=== PATIENT | female | born 1950 | race Caucasian/White ===

== ENCOUNTER 2021-02-24 18:44 | Inpatient (IN) | payer OTHER ==
[~2021-02-24] VITALS: Ht 142.2 cm; Wt 32.5 kg
[2021-02-24 19:00] VITALS: BP 161/68
[2021-02-24 19:59] LABS: LYMPHOCYTES 7.8 % (24.0-44.0)
[2021-02-24 20:07] LABS: CALCIUM 8.9 mg/dL (8.5-10.1); CREATININE 0.8 mg/dL (0.6-1.0); POTASSIUM 4.1 mmol/L (3.5-5.1)
[2021-02-24 20:13] LABS: TOTAL BILIRUBIN 0.6 mg/dL (0.2-1.0)
[2021-02-24 20:18] LABS: ABSOLUTE NEUTROPHILS 10.6 thou/uL (1.4-8.2); BASOPHILS 0.7 % (0.0-2.0); EOSINOPHILS 0.9 % (0.0-3.0); HEMATOCRIT 39.9 % (37.0-47.0); HEMOGLOBIN 13.6 gm/dL (12.0-15.0); MCH 34.8 pg (26.0-34.0); MCHC 34.1 g/dL (28.0-37.0); MCV 102.3 fL (80.0-100.0); MONOCYTES 4.4 % (1.0-8.0); PLATELET COUNT 288 thou/uL (150-400); POLYS 86.2 % (36.0-66.0); RDW 13.5 % (10.5-14.5); WBC 12.3 thou/uL (4.0-11.0)
[2021-02-24] MEDS ORDERED: ENDOCET 10-3251 EACH PO (20:47)
[2021-02-24 20:48] LABS: URINE BILIRUBIN NEGATIVE (Negative); URINE BLOOD NEGATIVE (Negative); URINE CLARITY CLEAR; URINE COLOR YELLOW; URINE GLUCOSE-RANDOM* NEGATIVE (Negative); URINE KETONES NEGATIVE (Negative); URINE LEUKOCYTES-REFLEX TRACE (Negative); URINE NITRITE-REFLEX NEGATIVE (Negative); URINE PROTEIN (DIPSTICK) 1+ (Negative); URINE SPECIFIC GRAVITY 1.025 (1.005-1.035); URINE UROBILINOGEN 0.2 E.U./dl (0.2-1.0)
[2021-02-24 20:51] LABS: BACTERIA-REFLEX None Seen /HPF (None Seen); CASTS None Seen /LPF (None Seen); CRYSTALS None Seen /LPF (None Seen); SQUAMOUS 0-3 Few /LPF (0-3); URINE RBC None Seen /HPF (0-2); URINE WBC-REFLEX 0-5 Rare /HPF (0-5)
[2021-02-24] MEDS ORDERED: ALPRAZOLAM1 MG PO (20:55)
[2021-02-24] MEDS ORDERED: TRANDATE 200 M200 M1 PO (20:55)
[2021-02-24 21:31] VITALS: BP 153/70
[2021-02-24 21:45] VITALS: BP 158/66
[2021-02-24 22:45] VITALS: BP 149/82
[2021-02-24 23:53] VITALS: BP 149/82
[2021-02-25 03:28] VITALS: BP 129/74
--- NOTE | 2021-02-25 07:20 | NUR ---
PT ADMITTED TO UNIT APPROX 2215, ORIENTED TO UNIT AND ROOM, CONSENTS OBTAINED, ADMISSION PACKET PROVIDED. PT AOX4. PT REPORTS 7-10/10 PAIN IN LEFT HIP. PT RECEIVING SCHEDULED IV MORPHINE Q6HR. PT DENIES SOB WHILE ON ROOM AIR. PT TOLERATING PO INTAKE OF FLUIDS AND REGULAR DIET WITHOUT ISSUE, NPO AT MIDNIGHT. PT WITHOUT NAUSEA OR EMESIS. PT RESTING IN BED THROUGHOUT SHIFT, FREQUENT REPOSITIONING ENCOURAGED, PT REFUSING TO REPOSITIONING ASSISTANCE DUE TO POSSIBLE PAIN AND CURRENT COMFORT. PT REPORTS HAVING SORENESS TO SACRUM, UNABLE TO VISUALIZE IN POSITION- PT DENIES OPENINGS IN SKIN. PT REPORTS TINGLING IN LLE. CAPILLARY REFILL LESS THAN 3SEC IN ALL EXTREMITIES. PT NOTED TO HAVE INCREASED ANXIETY REGARDING TAKING HOME MEDICATIONS, REQUESTING BP MEDICATION AND NICOTINE PATCH. ONCALL MANAGER BALANCE NOTIFIED, RECEIVED ORDERS FOR ONETIME 0.5MG IV ATIVAN, 7MG TRANSDERMAL NICOTINE PATCH DAILY, AND TO RESUME LABETOLOL HOME DOSE AND REGIMEN. PT ENCOURAGED TO NOTIFY STAFF FOR ALL NEEDS, CALL LIGHT WITHIN REACH, BED ALARM ON, BED LOCKED IN LOWEST POSITION, FREQUENT MONITORING WILL CONTINUE.
--- NOTE | 2021-02-25 09:08 | NUR ---
INITIAL ASSESSMENT: PT LIVES IN HOME WITH GRANDSON. PT STATED HER FOUR CHILDREN AND 5 GRANDCHILDREN "DROP IN ALL THE TIME." PT DRIVES VEHICLE, ACTIVE AND INDEPENDENT W/ADLS. PT FELL TRYING TO OPEN SLIDING DOORS. PT HAS 5 STEPS TO ENTRYWAY. PT DOES NOT HAVE TO NAVIGATE STAIRS ONCE INSIDE. GRANDSON DOES LAUNDRY THAT IS IN THE BASEMENT. PT HAS 0 DMES, AND DENIES HX WITH SNF/HH. CM TO CONT TO FOLLOW.
--- NOTE | 2021-02-25 11:03 | NUR ---
WOUND CONSULT; NO WOUNDS IDENTIFIED. THE PATIENT IS 73LBS. STATED SHE'S HAS ALWAYS BEEN THIS SIZE. NO WOUNDS IDENTIFIED. THE PATIENT IS HERE RE; A LEFT HIP FRACTURE. THE AREA IS BRUISED. NO WOUNDS IDENTIFIED. RECOMMENDATIONS; 1-LOW AIRLOSS BED PUMP 2-Q2H TUNING 3-BARRIER CREAM TO ALL BONY PROMINENCES. DISCUSSED WITH MAYTE
[2021-02-25 16:16] LABS: HEMATOCRIT 37.1 % (37.0-47.0); MCH 33.3 pg (26.0-34.0); MCHC 32.4 g/dL (28.0-37.0); MCV 102.7 fL (80.0-100.0); RBC 3.62 mil/uL (4.20-5.00); WBC 15.2 thou/uL (4.0-11.0)
[2021-02-25 16:40] VITALS: BP 122/70
--- NOTE | 2021-02-25 18:30 | NUR ---
PT ASSESSED AT START OF SHIFT. LT HIP BRUISING NOTED. PT VERY PAINFUL PRIOR TO SURGERY. CALLED FOR INCREASE IN PAIN MED WHICH HELPED SOME. PT WENT TO OR AT 1030 AND RETURNED TO ROOM AT 1420 ALERT AND IN NO PAIN. PT HAS CHRONIC BACK PAIN AND HAS TAKEN PERCOCET 10/325 FOR YEARS AND REQUESTED TO HAVE IT HERE. CALLED TO OBTAIN MED ORDER. LT HIP DSNG DRY W/ ICE PACK IN PLACE. TEDS/SCDS IN PLACE. TAKING LIQUIDS W/O NAUSEA AND WILL ADVANCE DIET. DTR TALKED W/ DR. PATRICK TO ADDRESS HER QUESTIONS.
[2021-02-25 19:48] VITALS: BP 100/65
--- NOTE | 2021-02-26 03:57 | NUR ---
ASSESSMENT COMPLETED. PT S/P LEFT TKR.CALEB DRSG CLEAN AND INTACT. SCDS AND TEDS IN PLACE. ICE ANABEL PROVIDED. PT ON A CJ MATTRESS, MOSTLY LYING ON RIGHT SIDE, DECLINING ANY OTHER OFFERS TO REPOSITION. BRUISING TO HIP AREA, NO EDEMA TO BLE-GOOD CSM NOTED TO LEFT FOOT. PT GETTING OXYCODONE PRN WITH RELIEF. SOME ELEMENT OF ANXIETY AND SADNESS-USING PRN XANAX.PT IS A PLEASANT LADY AND DOES NOT APPEAR TO BE IN ANY DISTRESS.
[2021-02-26 04:29] VITALS: BP 98/60
[2021-02-26 04:58] LABS: HEMATOCRIT 35.3 % (37.0-47.0); HEMOGLOBIN 11.9 gm/dL (12.0-15.0); MCH 34.6 pg (26.0-34.0); MCHC 33.8 g/dL (28.0-37.0); MCV 102.2 fL (80.0-100.0); RBC 3.45 mil/uL (4.20-5.00); RDW 12.8 % (10.5-14.5); WBC 10.2 thou/uL (4.0-11.0)
[2021-02-26 07:20] VITALS: BP 108/61
--- NOTE | 2021-02-26 08:22 | O ---
[facility] [place] [address] OPERATIVE REPORT Name: TANA MEJIA Room #: 440-P ADM IN M.R.#: [id number] Admission: 02/24/21 Attend Phys: Zay Fernando, Discharge: Date of : 54 Report #: [id number] THIS REPORT FOR: cc: Cathie Garcia MD, Stephanie M. MD Clymer, David J. MD ~ DATE OF SERVICE: 02/25/2021 PREOPERATIVE DIAGNOSIS: Left proximal femur fracture. POSTOPERATIVE DIAGNOSIS: Left proximal femur fracture. PROCEDURE: Left proximal femoral hemiarthroplasty. SURGEON: Adama Hubbard MD INDICATIONS: This very small very frail 70-year-old female has a number of chronic medical problems. She fell at home injuring the left hip. X-rays reveal a comminuted moderately complex basicervical fracture. This extends out into the greater trochanter and also to or slightly below the lesser trochanter. I have discussed with the patient treatment options including possible antegrade intramedullary nail fixation or hemiarthroplasty. I note that she is quite small and quite frail and the bone seems to be significantly osteopenic. Given this, I felt an open hemiarthroplasty with cemented components would probably be the best and most versatile option. She agreed and elected to proceed. DESCRIPTION OF PROCEDURE: The patient was taken to the operating room where she was placed under general anesthesia. Prophylactic intravenous antibiotics were administered. She was turned to the right lateral decubitus position. The left hip, thigh and leg were meticulously prepped and draped. A slightly curving posterolateral skin incision was made. This was carried through fascia exposing the posterior aspect of the hip joint, the capsule and short external rotators were taken down and preserved. The fracture was found to be moderately comminuted in the low neck region with some extension down into the calcar and lesser trochanter as well as some nondisplaced comminution extending out into the greater trochanter region. The fracture was very carefully debrided and the femoral head and neck were removed. A satisfactory calcar was prepared. The intramedullary canal was opened and very carefully reamed. A size 10 cement stem seemed to fit most appropriately. A trial reduction was performed and the hip seemed best suited for a +0 neck length with a cemented size 10 stem. The trial components were removed. The canal was once again thoroughly irrigated. Satisfactory alignment of the other comminuted fracture fragments was maintained. A cement restrictor was placed. Methyl methacrylate cement was mixed and injected into the canal. The [employer]hew hip system was [address] [address] OPERATIVE REPORT Name: TANA MEJIA SAUL Room #: 440-P [facility] IN M.R.#: [id number] Admission: 02/24/21 Attend Phys: Zay Fernando, Discharge: Date of : 54 Report #: [id number]. The size 10 Synergy cemented stem was selected. This was very gently advanced into the canal, positioning this in slight anteversion where it seemed to be most stable. Gentle pressure was held as the cement hardened. Excess cement was removed around its margin. A 41 mm trial head was placed matching her femoral head. The hip was reduced. Alignment, range of motion and stability seemed to be acceptable. A +0 neck length resulted in satisfactory leg length and good stability. The trial component was removed and the permanent 41 mm diameter unipolar head was selected with a +0 neck length sleeve. These were impacted on the Holder taper stem. The hip was reduced and once again alignment, range of motion and stability were assessed and felt to be satisfactory. The wound was copiously irrigated. Good hemostasis was established. The capsule and short external rotators were repaired back to bone using #1 Tevdek sutures, passed through drill holes in the greater trochanter. The fascia was closed with multiple #1 Vicryl sutures. The subcutaneous tissues were closed with 0 Monocryl. The skin was closed with skin juan carlos. A sterile dressing was applied. The patient was awakened and returned to recovery room in good condition. <ELECTRONICALLY SIGNED> By: Adama Hubbard MD 02/26/21 0822 [id number] Adama Hubbard MD /nt
--- NOTE | 2021-02-26 09:57 | NUR ---
Rec obtain vitamin D and B12 levels. Rec start MVI
--- NOTE | 2021-02-26 11:01 | NUR ---
Assumed care of pt at 0700. Pt a&ox4. Pain controlle with prn pain meds. Pt worked with physical and occupational therapy today. Mckeon catheter in place. To be removed tomorrow 02/27. Kehinde hose and SCDs in place. Dressing c/d/i. On 2L O2 due to pt desating to 83% on room air this am. Call light within reach. Fall precautions in place. Will continue to monitor.
[2021-02-26 16:31] VITALS: BP 116/77
--- NOTE | 2021-02-26 16:37 | NUR ---
ON-GOING ASSESSMENT: CM REVIEWED CHART AND SPOKE WITH PT WELL HER DAUGHTER. DAUGHTER REPORTS SHE DOES NOT WANT PATIENT RETURNING HOME WHERE SHE LIVES WITH GRANDSON SHE IS WORRIED SHE WILL FALL AND WILL NOT BE MOTIVATED. CM DISCUSSED OPTIONS WITH PATIENT FOR POST ACUTE CARE. THEY ARE INTERESTED IN [facility]. CM NOTIFIED THEM INSURANCE WOULD HAVE TO APPROVE AUTH. CM SPOKE WITH ATTENDING AND CONSULT WAS PLACED FOR [facility] WHO REPORTS THEY FEEL PT WOULD BE A GOOD CANIDATE. CM ALSO PROVIDED PT AND DAUGHTER WITH SNF LIST BACKUP. THEY ARE POSSIBLE INTERESTED IN [facility] IF [facility] IS NOT APPROVED. DAUGHTER IS CONCERNED PATIENT RECEIVED HER FIRST DOSE OF PFIZER VACCINE ON 02/05 AT [facility] [phone] AND WAS SCHEDULED FOR HER SECOND DOSE TODAY BUT REPORTS THAT THEY HAD TO CANCEL THE APPT SINCE SHE IS STILL HERE AND IS NOT GUARENTEED ANOTHER DOSE OR APPT NOW. THEY STATE THEY WERE TOLD PT COULD POSSIBLY GET IT HERE. CM REACHED OUT TO CM DIRECTOR WHO IS CHECKING WITH ADMINISTRATION ABOUT ANY POSSIBILITY OF PT BEING ABLE TO GET HER SECOND VACCINE HERE. CM WILL CONTINUE TO FOLLOW TO ASSIST NEEDED.
[2021-02-26 19:08] VITALS: BP 125/75
--- NOTE | 2021-02-26 21:37 | NUR ---
ASSESSMENT COMPLETED. PT IS ALERT AND ORIENTED. A LITTLE TEARFUL, SCHEDULED XANAX GIVEN. PT OBSERVED WATCHING TV. NO SIGNS OF DISTRESS. BREATHING OKAY ON JUST /NC.CALEB DRSG ON LEFT HIP IS C/D/I, SCDS IN PLACE.PT REPOSITIONED WITH PILLOW TO OFFLOAD COCCYX/SACCRUM, REMAINS ON CJ MATTRESS. PAIN WELL MANAGED WITH PRN OXYCODONE. PT LOOKING FORWARD TO REHAB ADMIT, AND SHE ALSO VERBALISES A PLAN TO TOTALLY QUIT SMOKING.CALL LIGHT WITHIN REACH, FALL PREC IN PLACE, WILL CONTINUE WITH POC TILL EOS.
[2021-02-27 05:11] LABS: HEMATOCRIT 28.5 % (37.0-47.0); MCH 34.6 pg (26.0-34.0); MCHC 33.8 g/dL (28.0-37.0); MCV 102.3 fL (80.0-100.0); RBC 2.78 mil/uL (4.20-5.00); RDW 13.2 % (10.5-14.5); WBC 12.8 thou/uL (4.0-11.0)
[2021-02-27 05:24] LABS: HEMOGLOBIN 9.6 gm/dL (12.0-15.0)
[2021-02-27 07:10] VITALS: BP 123/76
[2021-02-27] MEDS ORDERED: DOXYCYCLINE HYC50 MG PO (08:17)
[2021-02-27] MEDS ORDERED: ALPRAZOLAM1 MG PO (08:18)
[2021-02-27] MEDS ORDERED: PERCOCET 10-321 EACH PO (08:18)
[2021-02-27] MEDS ORDERED: ENOXAPARIN30 MG/0.1 SUBQ (08:19)
--- NOTE | 2021-02-27 10:45 | NUR ---
ON-GOING ASSESSMENT: CM REVIEWED CHART AND SPOKE WITH LIASON FROM . THEY HAVE SUBMITTED FOR INSURANCE AUTH ON PATIENT AND WAITING TO HEAR BACK. CM ALSO SPOKE WITH THE [facility] WHO REPORTS THEY HAVE MEDICALLY ACCEPTED PATIENT. CM NOTIFIED KRYSTLE AT THE [facility] WE ARE CURRENTLY AWAITING DETERMINATION FROM INSURANCE ON AT THIS TIME. CM WILL CONTINUE TO FOLLOW TO ASSIST NEEDED.
--- NOTE | 2021-02-27 10:54 | NUR ---
WOUND CARE F/U; POLLOWING UP WITH THIS PATIENT THRU THE HOSPITAL STAY FOR PREVENTION. THE PATIENT IS ONLY 74LBS. AND HAS HAD HIP SURGERY. SHE IS UP WITH A WALKER TODAY WITH THERAPY. I ASSESSED THE SACRUM AND BACK AN THERE ARE NO S/S OF A PRESURE INJURY AT THIS TIME. THE PATIENT HAD SOME EMESIS THIS AM WHICH IS BETTER NOW. RECOMMENDATIONS; NOTHING TO ADD TODAY. THERAPY IS HERE NOW.
--- NOTE | 2021-02-27 14:56 | NUR ---
PER ACUTE REHAB GOLF COURSE ARCHITECT, Pt IS A GOOD CANDIATE FOR [facility] ACUTE REHAB UNIT. HAS A GOOD D/C PLAN AND WOULD BENEFIT. REQUESTED AUTHORIZATION FROM [facility] TODAY AND FAXED CLINICAL INFORMATION TO [facility] REQUESTED. FAX # [phone]. REF #[id number]. AWAITING RESPONSE FROM [facility]. CASE MGMT UPDATED.
--- NOTE | 2021-02-27 16:15 | NUR ---
PT ASSESSED AT START OF SHIFT. DOING VERY WELL W/ WALKING PER THERAPY. HAD A LOT OF ANXIETY AND BECAME NAUSEATED AND VOMITING THIS AM. NEW IV PLACED OLD LEAKING. IV ZOFRAN GIVEN W/ GOOD RELIEF. XANAX ALSO HELPING. UP IN THE CHAIR FOR SEVERAL HOURS. BEING EVALUATED FOR 5[facility] REHAB. DAUGHTER AT BEDSIDE.
[2021-02-27 16:30] VITALS: BP 105/62
[2021-02-27 19:43] VITALS: BP 117/59
--- NOTE | 2021-02-27 22:54 | NUR ---
ASSESSMENT COMPLETED. PT ALERT AND ORIENTED. PLEASANT. REPORTS PAIN WELL MANAGED BY OXY Q6. PT REQUIRES XANAX Q8HRS. SHE IS IN A GOOD MOOD. PROUD OF HOW SHE DID WITH THERAPY TODAY. AFEBRILE.LOOKING FORWARD TO STARTING REHAB.
[2021-02-28 04:34] VITALS: BP 128/71
[2021-02-28 07:23] VITALS: BP 122/71
--- NOTE | 2021-02-28 10:33 | NUR ---
Assumed pt care at 7am.Pt in bed resting. Assessment completed.vss.Pt c/o generalized pain and requested for pain shot.Morphine 2mg ivp given as ordered with relief.Pt dangle at bs foe breakfast and am meds given and well tolerated.Therapist in room at present working with pt.If insurance auth. passed today,pt might dc to inpt rehab.Dr Werner here,order noted.Will continue to monitor.
--- NOTE | 2021-02-28 12:12 | NUR ---
ON-GOING ASSESSMENT: CM REVIEWED CHART. CM SPOKE WITH [facility] WHO REPORTS THEY DO NOT HAVE A RESPONSE FROM INSURANCE YET AT THIS TIME. [facility] PT IF [facility] CANNOT [facility]EPT. CM SPOKE WITH MARIA E DALTON AT THE [facility] WHO REPORTS THEY ARE TIGHT ON BEDS AND WILL DEPEND IF THEY HAVE A BED OPEN OR NOT AT TIME OF DISCHARGE. AWAITING INPUT FROM INSURANCE PT IS MEDICALLY STABLE. CM WILL CONTINUE TO FOLLOW UP WITH [facility].
[2021-02-28 16:32] VITALS: BP 115/71
[2021-02-28 19:09] VITALS: BP 136/68
--- NOTE | 2021-02-28 23:54 | NUR ---
ASSESSED AT START OF SHIFT PT A&OX4 UP WITH ASSISTX1 TO THE BATHROOM. C/O PAIN. PO AND IV PAIN MEDICATION GIVEN. DRESSING C/D/I. IV INTACT AND SALINE LOCK. ANXIETY MED ALSO GIVEN PER PT REQUEST. FALL PREC IN PLACE AND CALL LIGHT AT REACH WILL CONT TO MONITOR TILL EOS. PT ANTICIPATING D/C TO REHAB. ON 2L OF OXYGEN.
[2021-03-01 04:22] VITALS: BP 112/65
[2021-03-01 08:36] VITALS: BP 165/88
[2021-03-01 08:58] VITALS: BP 133/72
--- NOTE | 2021-03-01 11:20 | NUR ---
CALL RECEIVED FROM [facility] WITH OPTION FOR PEER TO PEER FOR STEEPLE JACK/PA/PHYSICIAN TO CALL [phone] OPTION 5. COLLET MAKER STATED NOTES INCIDATE THAT A LOWER LEVEL OF CARE MAY BE APPROPRIATE (SNF) WHEN PATIENT IS MEDICALLY STABLE. PEER TO PEER MUST BE DONE BY 3:00PM OFFICE TECHNOLOGY PROFESSOR THIS DATE, 03/01/21. STEEPLE JACK TO REVIEW PATIENT'S CHART TO DETERMINE IF PEER TO PEER WOULD BE APPPROPRIATE.
--- NOTE | 2021-03-01 12:23 | NUR ---
ON-GOING ASSESSMENT: cM REVIEWED CHART AND SPOKE WITH LIASON FROM [facility]. [facility] LIASON STATING THAT [facility] OFFERING PEER TO PEER PT BUT STATING FEEL PT IS MORE APPROPRIATE FOR LOWER LEVEL OF CARE. CM NOTIFIED PT AND HER DAUGHTER WHO IS AT THE BEDSIDE. THEY HAD BEEN REVIEWING SNF OPTIONS AND PREFER TO [facility] [place] [facility]. CM LEFT WITH [place] ADMISSIONS (BECKY WHO IS COVERING FOR KRYSTLE) AT 1215 REQUESTING THEY SEEK INSURANCE AUTH. CM FAXED UPDATED CLINICAL AND NEGATIVE COVID TEST AND AWAITING A RESPONSE AT THIS TIME. CM WILL CONTINUE TO FOLLOW TO ASSIST NEEDED.
--- NOTE | 2021-03-01 12:36 | NUR ---
SPOKE WITH TAMALE MAKER REGARDING INSURANCE RESPONSE TO AUTH REQUEST. D/C CLEAN UP PERSON WILL DISCUSS WITH PATIENT SKILLED OPTIONS AND PLAN FOR SKILLED FACILTIY DISCHARGE.
--- NOTE | 2021-03-01 14:44 | NUR ---
ASSUMED CARE OF PT AT 0700 THIS MORNING. PT IS POST OP FOR REPAIR OF LEFT HIP. PT HAS HX OF LEFT HIP FX. PT IS A/OX4, EYES PERRLA, SKIN INTACT NO TENTING, CDI DRESSING ON LEFT HIP, W/D/P, CR<3SEC X4, LUNG SOUNDS CLEAR ALL SANDERS, DISTAL PULSES 2+ X4. CALL LIGHT AND OTHER NEEDS WITHIN REACH. PT HAS BEEN UP WITH PT AND HAS WALKED IN THE ROOM. ASSESSMENT OTHERWISE UNREMARKABLE. WAITING AUTH FOR XFER TO REHAB FACILITY.
[2021-03-01 16:25] VITALS: BP 102/66
--- NOTE | 2021-03-01 16:39 | NUR ---
BOB RECEIVED A CALL FROM [facility] STATING THEY APPROVED SNF. BOB SPOKE WITH BECKY AT THE [facility] STATING IT IS TOO LATE IN THE DAY FOR THEM TO ACCEPT ALTHOUGH SHE WAS NOTIFIED AT 1603. SHE STATES THEY WERE NOTIFIED BY CORPORATE THAT THEY CANNOT ACCEPT ADMISSIONS AFTER TODAY AND CANNOT ACCEPT PT. BOB NOTIFIED MARIA E SIEGEL AT [facility] THEIR NEXT OPTION. SHE HAS STARTED THE AUTH PROCESS AND AWAITING FOR THE AUTH TO BE TRANSFERRED. BOB AWITING INPUT FROM MARIA E AT [facility] AT THIS TIME. CONTACT FOR [facility] IN ADMISSIONS AT [facility] IS [phone] OR [phone] FAX FOR [facility] [phone].
--- NOTE | 2021-03-01 17:52 | NUR ---
PT DISCHARGING TOMORROW TO [facility] FAXED DC ORDERS/SUMMARY TO FACILITY SPOKE WITH [facility] IN ADM SHE RECEIVED ORDERS/COVID RESULT. SHE ARRANGED TRANSPORT BY [facility] FOR 1100 TOMORROW 03/03. LEFT VOICEMAIL WITH PT'S DTR (THAI) OF DC AND TIME OF TRANSPORT. RN TO CALL TO MAKE SURE SHE RECEIVED MSG. UNIT NOTIFIED AND CHART COPY PER US. RN TO CALL REPORT.
[2021-03-01 23:50] VITALS: BP 124/72
--- NOTE | 2021-03-02 01:49 | NUR ---
ASSUMED CARE AT 1900. PT IS A/O X4 AND IS UP SBA WITH A WALKER AND GB TO THE BR. 2 LITERS OF O2 NC. DISPLAYS SOB WITH EXERTION AND DOES FATIGUE AFTER WALKING TO AND FROM THE BR. VOIDS PER TOILET. LBM TODAY. MENTIONS BEING ANXIOUS ABOUT GOING TO REHAB TOMORROW AND REQUESTED ANXIETY MEDICATION. PRN GIVEN. C/O PAIN IN LEFT HIP AND PRN PAIN MEDICATION GIVEN DIRECTED. DRSG TO HIP IS C/D/I WITH NO DRAINAGE NOTED. HAS NOT SLEPT MUCH THIS NOC. IV AND PO PAIN MEDICATION GIVEN FOR C/O PAIN WITH PARTIAL RELIEF. FALL PRECAUTIONS AND SCD'S IN PLACE. CALL LIGHT IS WITHIN REACH. PT CALLS OUT APPROPRIATELY. WILL CONTINUE TO MONITOR.
[2021-03-02 07:55] VITALS: BP 122/74
[2021-03-02 08:31] VITALS: BP 122/74
--- NOTE | 2021-03-02 10:17 | NUR ---
Assumed care of pt at 0700. Pt a&ox4. Pain controlled with prn pain meds. Pt nauseous with breakfast this am. Anti-emetic administered. Relief achieved. Dressing c/d/i. Pt will discharge to [facility] at 1100. Pt's daughter aware. Nurse called [facility] to give report. Nurse at [facility] states she will all back to get report. Call light within reach. Fall precautions in place.
== END 2021-03-02 11:10 | DRG 521 ==
LOC: ER 18:44 → EROBS 21:08 → 4S 21:08 → EROBS 22:30 → 4S 22:31
PROVIDERS: Emergency Medicine; Hospitalist; Orthopaedic Surgery; ADMIT Surgery; ATTEND Surgery
PROC: 0SRS019 Replacement of Left Hip Joint, Femoral Surface with Metal Synthetic Substitute, Cemented, Open Approach (ICD-10-PCS; principal; 2021-02-25)
DX: S72.002A Fracture of unspecified part of neck of left femur, initial encounter for closed fracture (principal); E43 Unspecified severe protein-calorie malnutrition; Z68.1 Body mass index [BMI] 19.9 or less, adult; J43.9 Emphysema, unspecified; M81.0 Age-related osteoporosis without current pathological fracture; F17.210 Nicotine dependence, cigarettes, uncomplicated; I10 Essential (primary) hypertension; F41.9 Anxiety disorder, unspecified; D64.9 Anemia, unspecified; L92.9 Granulomatous disorder of the skin and subcutaneous tissue, unspecified; R53.81 Other malaise; Z20.822 Contact with and (suspected) exposure to COVID-19; W00.0XXA Fall on same level due to ice and snow, initial encounter; Z71.6 Tobacco abuse counseling; Y93.89 Activity, other specified; Y92.89 Other specified places as the place of occurrence of the external cause; Y99.8 Other external cause status
CPT/HCPCS: 10102; 50010; 50101; 50382; 50414; 51057; 51130; 51225; 51226; 51412; 53000; 53078; 56521; 56525; 56530; 57095; 57103; 57165; 70005